=== PATIENT | female | born 1945 | race Caucasian/White ===

== ENCOUNTER 2019-07-15 12:28 | Emergency (ER) | payer MEDICARE, BC ==
[2019-07-15] MEDS ORDERED: Adacel (T-DAP) 0.5 ML SYRINGE ONE (13:30)
--- NOTE | 2019-07-15 14:01 | CT ---
CT Brain WO Con: 07/15/2019 1:18 PM CLINICAL HISTORY: Injury. COMPARISON: None. FINDINGS: Hemorrhage: None. Ventricular system: Normal in size and morphology for the patient's age. Cerebral parenchyma: Microvascular ischemic disease Midline shift: None. Mass: No mass effect. Calvarium: Normal. Visualized Paranasal sinuses: Clear. Left frontal scalp contusion. IMPRESSION: No acute intracranial abnormalities.
== END 2019-07-15 14:13 | disposition home or self-care (01) ==
LOC: SCSER 12:28
DX: S05.12XA Contusion of eyeball and orbital tissues, left eye, initial encounter (principal); S80.212A Abrasion, left knee, initial encounter; S40.819A Abrasion of unspecified upper arm, initial encounter; L03.211 Cellulitis of face; E11.9 Type 2 diabetes mellitus without complications; Z79.899 Other long term (current) drug therapy; Z79.84 Long term (current) use of oral hypoglycemic drugs; W19.XXXA Unspecified fall, initial encounter
CPT/HCPCS: 70450; 90471; 90715

== ENCOUNTER 2019-09-23 11:19 | Outpatient (CLI) | payer MEDICARE, BC ==
--- NOTE | 2019-09-23 11:41 | RAD ---
EXAM: XR Cervical Spine 4 View Min PROVIDED CLINICAL HISTORY: Neck pain COMPARISON: None FINDINGS: Cervical alignment appears normal. No evidence for abnormal translational motion with flexion and ext ension. Vertebral body heights are preserved. Disc space narrowing and endplate degenerative changes are noted at C4-5, C5-6 and C6-7. No prevertebral soft tissue swelling apparent. No evidence for fracture. The visualized lung apices appear clear. Vascular calcification is suspected in the left carotid bulb region. IMPRESSION: Cervical disc degenerative change.
== END 2019-09-23 11:20 | disposition home or self-care (01) ==
LOC: SCSRAD 11:19
PROVIDERS: ATTEND Family Medicine
DX: M54.2 Cervicalgia (principal); M50.321 Other cervical disc degeneration at C4-C5 level
CPT/HCPCS: 72050

== ENCOUNTER 2022-01-23 08:23 | Outpatient (CLI) | payer MEDICARE, BC | END 2022-01-23 08:24 | disposition home or self-care (01) | LOC: BICMAMMO 08:23 | PROVIDERS: ATTEND Family Medicine | DX: R92.8 Other abnormal and inconclusive findings on diagnostic imaging of breast (principal) | CPT/HCPCS: 77066; G0279 ==

== ENCOUNTER 2022-08-03 09:46 | Outpatient (CLI) | payer MEDICARE, BC ==
[2022-08-03 14:44] LABS: #Basophils 0.1 thou/uL (0.0-0.2); #Eosinphils 0.6 thou/uL (0.0-0.7); #Lymphocytes 1.8 thou/uL (1.20-3.40); #Monocytes 0.6 thou/uL (0.11-0.59); #Neutrophils 3.1 thou/uL (1.40-6.50); %Eosinophils 9.3 % (0.0-10.0); %Lymphocytes 30.1 % (21.0-51.0); %Monocytes 9.4 % (0.0-10.0); %Neutrophils 50.3 % (42.0-75.0); Hemoglobin 12.5 g/dL (12.0-16.0); Mean Corpuscular HGB CONC 31.4 g/dL (32.0-36.0); Mean Corpuscular Hemoglobin 28.9 pg (27.0-31.0); Mean Platelet Volume 9.7 fL (7.4-10.4); Platelet Count 186 10x3/uL (130-400); RBC Distribution Width 12.2 % (11.5-14.5); Red Blood Cell (RBC) Count 4.31 mill/uL (4.20-5.40); White Blood Cell (WBC) Count 6.1 10x3/uL (4.8-10.8)
[2022-08-03 14:48] LABS: Hemoglobin A1c 6.9 % (4.0-6.0)
[2022-08-03 14:53] LABS: Bacteria/HPF None Seen HPF (None Seen); Bilirubin Negative (Negative); Blood, Urine 1+ (Negative); Clarity Clear (Clear); Glucose, Urine (Dipstick) Greater than 1000 mg/dL (Negative); Ketone, Urine Negative (Negative); Leukocyte Negative Leu/uL (Negative); Nitrite Negative (Negative); Protein, Urine (Dipstick) Negative (Neg-Trace); Specific Gravity, Urine 1.024 (1.002-1.036); Squamous Epithelial 0-3 HPF (0-3); Urobilinogen Normal mg/dL (Less than 2); WBC/HPF 0-3 HPF (0-3)
[2022-08-03 15:04] LABS: ALT (SGPT) 14 U/L (8-55); AST (SGOT) 22 U/L (5-34); Albumin 4.2 g/dL (3.4-4.8); Alkaline Phosphatase 64 U/L (40-110); Anion Gap 13 mmol/L (10-20); BUN (Urea Nitrogen) 17 mg/dL (9.8-20.1); Bilirubin, Total 0.5 mg/dL (0.2-1.2); Calc. Creatinine Clearance 0 mL/min (70-130); Calcium 9.1 mg/dL (7.8-10.44); Carbon Dioxide 28 mmol/L (23-31); Chloride 103 mmol/L (98-107); Estimated GFR 66; Globulin 2.5 g/dL (2.4-3.5); Glucose 128 mg/dL (83-110); Potassium 4.2 mmol/L (3.5-5.1); Protein, Total 6.7 g/dL (5.8-8.1); Sodium 140 mmol/L (136-145)
[2022-08-03 15:21] LABS: Creatinine, Urine 68.66 mg/dL (47-110); Microalbumin Urine 1.4 mg/dL (0.5-50.0); Microalbumin/Creat Ratio 20.4 mg/g (Less than 30)
== END 2022-08-03 09:47 | disposition home or self-care (01) ==
LOC: SCSRAD 09:46
PROVIDERS: ATTEND Family Medicine
DX: R07.9 Chest pain, unspecified (principal); E11.9 Type 2 diabetes mellitus without complications
CPT/HCPCS: 36415; 71046; 80053; 81001; 82043; 83036; 85025

== ENCOUNTER 2023-03-18 16:09 | Observation (INO) | payer MEDICARE, BC ==
[2023-03-18 20:31] VITALS: BMI 25.9
[2023-03-18] MEDS ORDERED: Acetaminophen 325 MG TAB PO PRN (20:34)
[2023-03-18] MEDS ORDERED: Acetaminophen 650 MG Suppository PR PRN (20:34)
[2023-03-18] MEDS ORDERED: Ondansetron PF 4 MG/2 ML Vial IVP PRN (20:34)
[2023-03-18] MEDS ORDERED: Ondansetron ODT 4 MG TAB PO PRN (20:34)
[2023-03-18] MEDS ORDERED: Morphine 4 MG/ML VIAL SLOW IVP PRN (20:50)
[2023-03-18] MEDS ORDERED: Dextrose 5% in Water 1,000 ML IV PRN (21:29)
[2023-03-18] MEDS ORDERED: Glucagon 1 MG/ML KIT IM PRN (21:29)
[2023-03-18] MEDS ORDERED: Dextrose 50% Abboject 50 ML SYRINGE SLOW IVP PRN (21:29)
[2023-03-18] MEDS ORDERED: HumaLOG 300 UNITS/3 ML VIAL SC PRN ×2 (21:29)
[2023-03-18 22:11] LABS: Lactic Acid 2.4 mmol/L (0.5-2.2)
[2023-03-18 22:18] LABS: Anion Gap 23 mmol/L (10-20); BUN (Urea Nitrogen) 36 mg/dL (9.8-20.1); Calc. Creatinine Clearance 38 mL/min (70-130); Carbon Dioxide 14 mmol/L (23-31); Chloride 103 mmol/L (98-107); Estimated GFR 40; Glucose 361 mg/dL (83-110); Magnesium 2.3 mg/dL (1.6-2.6); Potassium 5.3 mmol/L (3.5-5.1); Sodium 135 mmol/L (136-145)
[2023-03-18] MEDS: Sodium Chloride 0.9% 1,000 ML IV SCH (22:30)
[2023-03-19 04:52] LABS: #Monocytes 0.5 thou/uL (0.11-0.59); #Neutrophils 9.2 thou/uL (1.40-6.50); %Basophils 0.1 % (0.0-1.0); %Lymphocytes 6.6 % (21.0-51.0); %Monocytes 5.1 % (0.0-10.0); %Neutrophils 87.8 % (42.0-75.0); Hemoglobin 10.5 g/dL (12.0-16.0); Mean Corpuscular HGB CONC 31.9 g/dL (32.0-36.0); Mean Corpuscular Volume 87.7 fl (78.0-98.0); Mean Platelet Volume 11.1 fL (7.4-10.4); Platelet Count 188 10x3/uL (130-400); RBC Distribution Width 13.4 % (11.5-14.5); Red Blood Cell (RBC) Count 3.75 mill/uL (4.20-5.40); White Blood Cell (WBC) Count 10.5 10x3/uL (4.8-10.8)
[2023-03-19 05:16] LABS: Anion Gap 19 mmol/L (10-20); BUN (Urea Nitrogen) 38 mg/dL (9.8-20.1); Calc. Creatinine Clearance 35 mL/min (70-130); Calcium 8.5 mg/dL (7.8-10.44); Carbon Dioxide 17 mmol/L (23-31); Chloride 110 mmol/L (98-107); Estimated GFR 36; Glucose 245 mg/dL (83-110); Potassium 5.1 mmol/L (3.5-5.1); Sodium 141 mmol/L (136-145)
[2023-03-19] MEDS: Sodium Chloride 0.9% 1,000 ML IV SCH (05:54)
[2023-03-19] MEDS ORDERED: Insulin Glargine 30 UNITS/0.3 ML VIAL SC SCH (06:00)
[2023-03-19] MEDS ORDERED: Sodium Chloride 0.9% 500 ML IV SCH (06:00)
[2023-03-19 06:22] LABS: Hemoglobin A1c 7.7 % (4.0-6.0)
[2023-03-19 08:54] LABS: Base Excess -11.3 mEq/L (-2.0 to +3.0); Calcium, Ionized (venous) 0.95 mmol/L (1.16-1.32); Chloride (VBG) 110 mmol/L (98-106); Hematocrit-VBG 35 % (36.0-47.0); Hemoglobin (Hb) 11.8 g/dL (11.7-16.1); Potassium (VBG) 4.31 mmol/L (3.70-5.30); Sodium 138.8 mmol/L (133-146); pH (venous) 7.322 (7.32-7.43)
[2023-03-19 08:56] LABS: Actual Bicarbonate (HCO3v) 13.2 mEq/L (22-28)
[2023-03-19] MEDS ORDERED: Pantoprazole 40 MG VIAL IVP SCH (09:00)
[2023-03-19 16:43] VITALS: BP 119/58; TEMP 99.6
[2023-03-19] MEDS ORDERED: Atorvastatin Calcium 20 MG TAB PO SCH (21:00)
[2023-03-20] MEDS ORDERED: Levothyroxine Sodium 125 MCG TAB PO SCH (06:00)
[2023-03-20] MEDS ORDERED: Levothyroxine Sodium 112 MCG TAB PO SCH (06:00)
[2023-03-20] MEDS ORDERED: Aspirin 81 mg Enteric Coated Tablet PO SCH (09:00)
[2023-03-20] MEDS ORDERED: Insulin Glargine 30 UNITS/0.3 ML VIAL SC SCH (09:00)
[2023-03-20] MEDS ORDERED: Escitalopram Oxalate 10 mg Tablet PO SCH (09:00)
[2023-03-20] MEDS ORDERED: Empagliflozin 10 MG TAB PO SCH (09:00)
[2023-03-20] MEDS ORDERED: Ezetimibe 10 MG TAB PO SCH (09:00)
== END 2023-03-19 17:50 | disposition home or self-care (01) ==
LOC: 2SW 19:30
PROVIDERS: ADMIT Internal Medicine; ATTEND Internal Medicine
DX: R06.02 Shortness of breath (principal); M16.11 Unilateral primary osteoarthritis, right hip; E11.9 Type 2 diabetes mellitus without complications; I50.32 Chronic diastolic (congestive) heart failure; E03.9 Hypothyroidism, unspecified; N17.9 Acute kidney failure, unspecified; Z88.5 Allergy status to narcotic agent; Z88.0 Allergy status to penicillin; Z79.890 Hormone replacement therapy; Z79.82 Long term (current) use of aspirin; Z79.899 Other long term (current) drug therapy
CPT/HCPCS: 80048 ×2; 82010; 82805; 82962 ×2; 83036; 83605 ×2; 83735; 83880; 84439; 84443; 85025; 93306; 96374; 96375 ×2; G0378 ×2; 36415; 36416; C9113; J1815; J2270; J2405; J7030; J7050

== ENCOUNTER 2023-06-05 14:52 | Emergency (ER) | payer MEDICARE, BC ==
[2023-06-05 15:50] LABS: #Eosinphils 0.2 thou/uL (0.0-0.7); #Monocytes 0.5 thou/uL (0.11-0.59); #Neutrophils 2.7 thou/uL (1.40-6.50); %Basophils 0.7 % (0.0-1.0); %Eosinophils 2.8 % (0.0-10.0); %Lymphocytes 38.5 % (21.0-51.0); %Monocytes 9.1 % (0.0-10.0); %Neutrophils 48.7 % (42.0-75.0); Hematocrit 38.7 % (36.0-47.0); Hemoglobin 12.3 g/dL (12.0-16.0); Mean Corpuscular HGB CONC 31.8 g/dL (32.0-36.0); Mean Corpuscular Hemoglobin 28.1 pg (27.0-31.0); Mean Corpuscular Volume 88.4 fl (78.0-98.0); Mean Platelet Volume 10.8 fL (7.4-10.4); Platelet Count 206 10x3/uL (130-400); RBC Distribution Width 14.6 % (11.5-14.5); Red Blood Cell (RBC) Count 4.38 mill/uL (4.20-5.40); White Blood Cell (WBC) Count 5.6 10x3/uL (4.8-10.8)
[2023-06-05 17:00] LABS: ALT (SGPT) 14 U/L (8-55); AST (SGOT) 26 U/L (5-34); Albumin 4.4 g/dL (3.4-4.8); Alkaline Phosphatase 63 U/L (40-110); Anion Gap 14 mmol/L (10-20); BUN (Urea Nitrogen) 19 mg/dL (9.8-20.1); Bilirubin, Total 0.4 mg/dL (0.2-1.2); Calc. Creatinine Clearance 0 mL/min (70-130); Calcium 9.5 mg/dL (7.8-10.44); Carbon Dioxide 25 mmol/L (23-31); Chloride 105 mmol/L (98-107); Estimated GFR 49; Globulin 3.4 g/dL (2.4-3.5); Glucose 70 mg/dL (83-110); Potassium 4.4 mmol/L (3.5-5.1); Protein, Total 7.8 g/dL (5.8-8.1); Sodium 140 mmol/L (136-145)
== END 2023-06-05 17:22 | disposition home or self-care (01) ==
LOC: ERS 14:52
DX: E11.649 Type 2 diabetes mellitus with hypoglycemia without coma (principal); E78.00 Pure hypercholesterolemia, unspecified; Z79.899 Other long term (current) drug therapy; Z79.4 Long term (current) use of insulin
CPT/HCPCS: 36416; 80053; 85025; 93005; 99284

== ENCOUNTER 2023-07-30 11:56 | Outpatient (CLI) | payer MEDICARE, BC ==
[2023-07-30 12:49] LABS: #Basophils 0.1 10x3/uL (0.0-0.2); #Eosinphils 0.2 10x3/uL (0.0-0.5); #Monocytes 0.5 10x3/uL (0.0-1.1); #Neutrophils 3.1 10x3/uL (1.5-8.4); %Basophils 0.9 % (0.0-2.0); %Lymphocytes 31.7 % (18.0-47.0); %Monocytes 8.2 % (0.0-10.0); Hemoglobin 11.8 g/dL (12.0-15.5); Mean Corpuscular HGB CONC 32.8 g/dL (32.0-36.0); Mean Corpuscular Hemoglobin 28.7 pg (27.0-33.0); Mean Corpuscular Volume 87.6 fl (81.6-98.3); Mean Platelet Volume 11.3 fl (7.4-10.4); Platelet Count 218 10x3/uL (150-450); RBC Distribution Width 13.6 % (11.5-14.5); Red Blood Cell (RBC) Count 4.11 10x6/uL (3.90-5.03); White Blood Cell (WBC) Count 5.6 10x3/uL (3.5-10.5)
[2023-07-30 13:16] LABS: ALT (SGPT) 11 U/L (8-55); AST (SGOT) 20 U/L (5-34); Alkaline Phosphatase 57 U/L (40-110); Anion Gap 11 mmol/L (10-20); BUN (Urea Nitrogen) 18 mg/dL (9.8-20.1); Bilirubin, Total 0.4 mg/dL (0.2-1.2); Calc. Creatinine Clearance 0 mL/min (70-130); Calcium 8.9 mg/dL (7.8-10.44); Carbon Dioxide 27 mmol/L (23-31); Chloride 104 mmol/L (98-107); Estimated GFR 53; Globulin 2.4 g/dL (2.4-3.5); Glucose 126 mg/dL (83-110); Potassium 4.4 mmol/L (3.5-5.1); Protein, Total 6.4 g/dL (5.8-8.1); Sodium 138 mmol/L (136-145)
== END 2023-07-30 11:57 | disposition home or self-care (01) ==
LOC: LABBT 11:56
PROVIDERS: ATTEND Internal Medicine Cardiovascular Disease
DX: Z01.812 Encounter for preprocedural laboratory examination (principal); I25.10 Atherosclerotic heart disease of native coronary artery without angina pectoris
CPT/HCPCS: 80053; 85025

== ENCOUNTER → 2023-08-01 | Day surgery (SDC) | payer MEDICARE, BC ==
[2023-07-30 12:40] VITALS: BMI 25.4
[~2023-08-01] MED LIST: Adenosine 6 MG/2 ML VIAL ONE; Heparin 10,000 UNITS/ 10 ML VIAL ONE; Lidocaine 1% (PF) 30 ML VIAL ONE; Midazolam HCl 2 mg/2 ml Vial ONE; Nitroglycerin 50 MG/250 ML BOT 0 ML ONE; Verapamil 5 MG/2 ML VIAL ONE; fentaNYL 50 mcg/mL 1 mL Vial ONE
== END ==
LOC: CCL 05:50
PROVIDERS: ATTEND Internal Medicine Cardiovascular Disease
PROC: 4A023N7 Measurement of Cardiac Sampling and Pressure, Left Heart, Percutaneous Approach (ICD-10-PCS; principal; 2023-08-01)
PROC: B205YZZ Plain Radiography of Left Heart using Other Contrast (ICD-10-PCS; 2023-08-01)
DX: I25.118 Atherosclerotic heart disease of native coronary artery with other forms of angina pectoris (principal); E11.9 Type 2 diabetes mellitus without complications; I35.0 Nonrheumatic aortic (valve) stenosis; I20.9 Angina pectoris, unspecified; E78.2 Mixed hyperlipidemia; F32.A Depression, unspecified; Z90.710 Acquired absence of both cervix and uterus; Z88.0 Allergy status to penicillin; Z98.890 Other specified postprocedural states
CPT/HCPCS: 93458; C1769 ×2; C1894; J3010; 99152; J0153; J1644; J2001; J2250

== ENCOUNTER 2024-10-02 10:23 | Emergency (ER) | payer MEDICARE ==
[2024-10-02 10:58] LABS: #Basophils 0.03 10x3/uL (0.0-0.2); %Basophils 0.5 % (0.0-1.0); %Eosinophils 4.1 % (0.0-10.0); %Lymphocytes 24.8 % (21.0-51.0); %Monocytes 7.7 % (0.0-10.0); %Neutrophils 62.7 % (42.0-75.0); Hemoglobin 12.2 g/dL (12.0-16.0); Mean Corpuscular Hemoglobin 28.4 pg (27.0-31.0); Mean Platelet Volume 10.8 fL (7.4-10.4); Platelet Count 219 10x3/uL (130-400); RBC Distribution Width 16.3 % (11.5-14.5)
[2024-10-02 11:17] LABS: Troponin I Less than 0.010 ng/mL (< 0.028)
[2024-10-02 11:48] LABS: Bacteria/HPF None Seen HPF (None Seen); Bilirubin Negative (Negative); Blood, Urine Trace (Negative); CAUTI Indications for Culture Pelvic or flank pain; Clarity Turbid (Clear); Glucose, Urine (Dipstick) Greater than 1000 mg/dL (Negative); Ketone, Urine Negative (Negative); Leukocyte 75 Leu/uL (Negative); Nitrite Negative (Negative); Protein, Urine (Dipstick) Negative (Neg-Trace); Specific Gravity, Urine 1.029 (1.002-1.036); Squamous Epithelial 21-50 HPF (0-3); Urobilinogen Normal mg/dL (Less than 2); WBC/HPF 0-3 HPF (0-3)
[2024-10-02 11:49] LABS: Urine Culture Reflex No No
[2024-10-02 12:21] LABS: ALT (SGPT) 24 U/L (8-55); AST (SGOT) 33 U/L (5-34); Albumin 3.6 g/dL (3.4-4.8); Alkaline Phosphatase 70 U/L (40-110); Anion Gap 12 mmol/L (10-20); BUN (Urea Nitrogen) 18 mg/dL (9.8-20.1); Bilirubin, Total 0.5 mg/dL (0.2-1.2); Calc. Creatinine Clearance 0 mL/min (70-130); Calcium 9.1 mg/dL (7.8-10.44); Carbon Dioxide 24 mmol/L (23-31); Chloride 104 mmol/L (98-107); Estimated GFR 62; Globulin 3.2 g/dL (2.4-3.5); Glucose 232 mg/dL (83-110); Lipase 20 U/L (8-78); Magnesium 2.2 mg/dL (1.6-2.6); Potassium 4.9 mmol/L (3.5-5.1); Protein, Total 6.8 g/dL (5.8-8.1); Sodium 135 mmol/L (136-145)
[2024-10-02 14:05] LABS: Troponin I Less than 0.010 ng/mL (< 0.028)
== END 2024-10-02 14:40 | disposition home or self-care (01) ==
LOC: ERS 10:23
DX: I20.89 Other forms of angina pectoris (principal); E78.00 Pure hypercholesterolemia, unspecified; E11.9 Type 2 diabetes mellitus without complications; Z79.82 Long term (current) use of aspirin; Z79.4 Long term (current) use of insulin; Z79.899 Other long term (current) drug therapy; Z85.3 Personal history of malignant neoplasm of breast; Z90.710 Acquired absence of both cervix and uterus
CPT/HCPCS: 36415; 71045; 80053; 81001; 83690; 83735; 83880; 84484; 85025; 93005